=== PATIENT | male | born 1950 | race African-American/Black ===

== ENCOUNTER 2019-09-05 09:53 | Emergency (ER) | payer OTHER ==
[2019-09-05] MEDS ORDERED: Morphine 2 MG/ML SYRINGE ONE (10:19)
[2019-09-05] MEDS ORDERED: Morphine 4 MG/ML VIAL ONE (10:20)
[2019-09-05] MEDS ORDERED: Ketorolac Tromethamine 60 MG/2 ML VIAL ONE (11:42)
[2019-09-05] MEDS ORDERED: Clindamycin 150 MG CAP ONE (11:54)
[2019-09-05] MEDS ORDERED: Sulfameth/Trimethoprim DS 800-160mg TAB ONE (13:06)
== END 2019-09-05 13:15 | disposition home or self-care (01) ==
LOC: BURERS 09:53
DX: K11.20 Sialoadenitis, unspecified (principal); I10 Essential (primary) hypertension
CPT/HCPCS: 42300; 87070; 87205; 96372; J1885; J2270

== ENCOUNTER 2020-10-29 22:37 | Emergency (ER) | payer OTHER | END 2020-10-29 23:42 | disposition home or self-care (01) | LOC: BURERS 22:37 | DX: R33.9 Retention of urine, unspecified (principal); I10 Essential (primary) hypertension; E78.5 Hyperlipidemia, unspecified; Z79.899 Other long term (current) drug therapy; Z79.82 Long term (current) use of aspirin | CPT/HCPCS: 51702 ==

== ENCOUNTER 2020-12-06 13:36 | Emergency (ER) | payer MEDICARE, OTHER ==
[2020-12-06] MEDS ORDERED: Lidocaine 1% w/Epinephrine 1:100K 20 ML VIAL ONE (13:56)
== END 2020-12-06 14:11 | disposition home or self-care (01) ==
LOC: BURERS 13:36
DX: L02.211 Cutaneous abscess of abdominal wall (principal); I10 Essential (primary) hypertension; E78.5 Hyperlipidemia, unspecified
CPT/HCPCS: 10060